=== PATIENT | male | born 1990 | race Caucasian/White ===

== ENCOUNTER 2017-07-19 05:46 | Emergency (ER) | payer BC ==
[2017-07-19] MEDS ORDERED: Ketorolac 30 MG/ML SDV IVPUSH ONE (05:54)
[2017-07-19] MEDS ORDERED: Ondansetron 4 MG/2 ML SDV IVPUSH ONE (05:54)
[2017-07-19] MEDS ORDERED: Sodium Chloride 0.9% 1,000 ML IV ONE (05:54)
--- NOTE | 2017-07-19 05:55 | EDM.PDOC ---
ED HPI GENERAL MEDICAL PROBLEM - General Chief Complaint: Headache Stated Complaint: HEAD ACKE,NAUSEA Time Seen by Provider: 07/19/17 05:54 Source of Information: Reports: Patient - History of Present Illness INITIAL COMMENTS - FREE TEXT/NARRATIVE: HISTORY AND PHYSICAL: History of present illness: [] Patient presents with headache that began last night increasing throughout the night he states it's throbbing in quality began after some viral symptoms, he has a roommate with similar symptoms including sore throat nausea headache slight cough for 24 hours nonproductive no fever vomiting chills sweats no chest pain shortness breath dizziness or palpitation no bowel or urine symptoms Most concerning symptom to the patient is the headache he rates 4 out of 10 right unilateral left nausea that wax and wanes no vomiting no meningeal signs no hot potato voice drooling or trismus Review of systems: As per history of present illness and below otherwise all systems reviewed and negative. Past medical history: As per history of present illness and as reviewed below otherwise noncontributory. Surgical history: As per history of present illness and as reviewed below otherwise noncontributory. Social history: No reported history of drug or alcohol abuse. Family history: As per history of present illness and as reviewed below otherwise noncontributory. Physical exam: HEENT: Atraumatic, normocephalic, pupils reactive, negative for conjunctival pallor or scleral icterus, mucous membranes moist, throat clear, neck supple, nontender, trachea midline. Moderate erythema oropharynx TNA noted no meningeal signs no sinus pain or pressure tympanic membrane on the right is injected with effusion no mastoid tenderness on the left red and bulging loss of landmarks no mastoid tenderness Lungs: Clear to auscultation, breath sounds equal bilaterally, chest nontender. Heart: S1S2, regular, negative for clicks, rubs, or JVD. Abdomen: Soft, nondistended, nontender. Negative for masses or hepatosplenomegaly. Negative for costovertebral tenderness. Pelvis: Stable nontender. Genitourinary: Deferred. Rectal: Deferred. Extremities: Atraumatic, negative for cords or calf pain. Neurovascular unremarkable. Neuro: Awake, alert, oriented. Cranial nerves II through XII unremarkable. Cerebellum unremarkable. Motor and sensory unremarkable throughout. Exam nonfocal. Diagnostics: []Rapid strep Therapeutics: []1 L normal saline bolus Zofran 8 mg IV Toradol 30 mg IV Patient ultimately declined treatment for the headache which was the main reason he stated for being here He does have pharyngitis and otitis media on the left provide Z-Blaze Impression: []Headache and pharyngitis Viral syndrome Left otitis media Definitive disposition and diagnosis as appropriate pending reevaluation and review of above. headache Pain Score (Numeric/FACES): 7 - Related Data Allergies Allergy/AdvReac Type Severity Reaction Status Date / Time No Known Allergies Allergy Verified 07/19/17 05:54 Home Meds: Home Meds . [No Known Home Meds] 07/19/17 [History] ED ROS GENERAL - Review of Systems Review Of Systems: ROS reveals no pertinent complaints other than HPI. ED EXAM, GENERAL - Physical Exam Exam: See Below Course - Vital Signs Last Recorded V/S: Last Vital Signs Temp 36.3 C 07/19/17 05:54 Pulse 74 07/19/17 05:54 Resp 18 07/19/17 05:54 BP 125/86 07/19/17 05:54 Pulse Ox 98 07/19/17 05:54 - Orders/Labs/Meds Orders: Active Orders 24 hr Category Date Time Status STREP SCRN A RAPID W CULT CONF [RM] Stat Lab 07/19/17 06:00 Received Sodium Chloride 0.9% [Normal Saline] 1,000 ml Med 07/19/17 05:54 Active IV STAT Medication Orders Sodium Chloride (Normal Saline) 1,000 mls @ 999 mls/hr IV STAT ONE Stop: 07/19/17 06:54 Meds: Medications Generic Name Dose Route Start Last Admin Trade Name Freq PRN Reason Stop Dose Admin Sodium Chloride 1,000 mls @ 999 mls/hr 07/19/17 05:54 Normal Saline IV 07/19/17 06:54 STAT ONE Discontinued Medications Generic Name Dose Route Start Last Admin Trade Name Freq PRN Reason Stop Dose Admin Ketorolac Tromethamine 30 mg 07/19/17 05:54 Toradol IVPUSH 07/19/17 05:55 ONETIME ONE Ondansetron HCl 8 mg 07/19/17 05:54 Zofran IVPUSH 07/19/17 05:55 ONETIME ONE Departure - Departure Time of Disposition: 06:23 Disposition: Home, Self-Care 01 Condition: Good Clinical Impression: Headache, Otitis media, Pharyngitis - Discharge Information Referrals: PCP,None [Primary Care Provider] - Forms: ED Department Discharge Additional Instructions: The following information is given to patients seen in the emergency department who are being discharged to home. This information is to outline your options for follow-up care. We provide all patients seen in our emergency department with a follow-up referral. The need for follow-up, as well as the timing and circumstances, are variable depending upon the specifics of your emergency department visit. If you don't have a primary care physician on staff, we will provide you with a referral. We always advise you to contact your personal physician following an emergency department visit to inform them of the circumstance of the visit and for follow-up with them and/or the need for any referrals to a consulting specialist. The emergency department will also refer you to a specialist when appropriate. This referral assures that you have the opportunity for follow-up care with a specialist. All of these measure are taken in an effort to provide you with optimal care, which includes your follow-up. Under all circumstances we always encourage you to contact your private physician who remains a resource for coordinating your care. When calling for follow-up care, please make the office aware that this follow-up is from your recent emergency room visit. If for any reason you are refused follow-up, please contact the [facility] emergency department at and asked to speak to the emergency department charge nurse. - My Orders Last 24 Hours: My Active Orders 07/19/17 05:54 Sodium Chloride 0.9% [Normal Saline] 1,000 ml IV STAT 07/19/17 06:00 STREP SCRN A RAPID W CULT CONF [RM] Stat - Assessment/Plan Last 24 Hours: My Active Orders 07/19/17 05:54 Sodium Chloride 0.9% [Normal Saline] 1,000 ml IV STAT 07/19/17 06:00 STREP SCRN A RAPID W CULT CONF [RM] Stat
[2017-07-19 06:43] VITALS: BP 123/82
== END 2017-07-19 06:40 | disposition home or self-care (01) ==
LOC: MW.ED 05:46
DX: H66.92 Otitis media, unspecified, left ear (principal); R51 Headache; J02.9 Acute pharyngitis, unspecified; B34.9 Viral infection, unspecified
CPT/HCPCS: 87081; 87880; 99282; 99284